=== PATIENT | female | born 1960 | race Caucasian/White ===

== ENCOUNTER 2021-03-11 09:52 | Outpatient (CLI) | payer BC, SELFPAY ==
--- NOTE | ~2021-03-11 | CT_ITS ---
EXAMINATION: CT diagnostic chest wo con DATE: 03/11/2021 10:23 INDICATION: Abnormal findings on diagnostic imaging of other specified body, lung nodules, history of cervical cancer TECHNIQUE: Computed tomography (CT) of the chest was performed without intravenous contrast. The dose -length product (DLP) was 366.91 mGy-cm. 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 COMPARISON: None FINDINGS: There is a 4 mm nodule in the posterior aspect of the right upper lobe on image 30. There i s a 2 mm nodule in the right lung apex on image 21. Mild emphysema is noted. The lungs are free of fo loly airspace opacities. There is no pleural effusion or pneumothorax. No pathologically enlarged thor acic lymph nodes are identified. The heart size is normal. Calcified coronary artery atherosclerosis is noted. There is mild thoracic spondylosis. IMPRESSION: 1. Nodule of the right lung apex measuring up to 4 mm which could reflect old granulomatous disease. Recommend comparison with any available outside imaging to assess for interval change. Reviewed, dictated and finalized at location B. [facility] IMPRESSION: 1. Nodule of the right lung apex measuring up to 4 mm which could reflect old g ranulomatous disease. Recommend comparison with any available outside imaging t o assess for interval change.
== END 2021-03-11 09:53 | disposition home or self-care (01) ==
LOC: ANHIMG 09:53
PROVIDERS: PCP Internal Medicine; Visit Provider Nurse Practitioner
DX: I25.10 Atherosclerotic heart disease of native coronary artery without angina pectoris (principal); M47.814 Spondylosis without myelopathy or radiculopathy, thoracic region; R93.89 Abnormal findings on diagnostic imaging of other specified body structures
CPT/HCPCS: 71250

== ENCOUNTER 2021-04-05 10:26 | Outpatient (CLI) | payer BC, SELFPAY ==
--- NOTE | 2021-04-06 09:05 | P.PCNPFT_ITS ---
PFT Procedure Performed PFT Procedure Performed Spirometry with Pre/Post Bronchodilator Plethysmography (Lung Vol) Diffusing Cap (DLCO) Flow Vol Loop PFT Interpretation Lung volumes were measured with the body plethysmography method. The elevated RV and FRC could be due to air trapping. Spirometry showed diminished expir atory flow rates and a diminished FEV1 to FVC ratio 67%, indicative of obstructive airway disease. Following administration of a bronchodilator, there was no significant increase in expiratory flow rates. Lung diffusion capacity is moderately reduced at 58% predicted. The flow volume loop is consistent with obstructive airway disease. Impression: Moderate obstructive airway disease with no response to bronchodilators on this testing. Moderately reduced lung diffusion capacity.
--- NOTE | 2021-04-06 09:12 | WPDSIXMINUTE ---
Six Minute Walk Procedure Procedure Performed Pulmonary Stress Test (6 min walk) Six Minute Walk This 6 minute walk test was carried out with the patient breathing ambient air. The pre walk oxyhemoglobin saturation was 96%. The patient was able to walk over 426 m with no stops during testing. During the walk the oxyhemoglobin saturation remained over 91%. Impression: No evidence of oxyhemoglobin desaturation on this testing.
== END 2021-04-05 10:27 | disposition home or self-care (01) ==
LOC: ANHPFT 10:28
PROVIDERS: PCP Internal Medicine; Visit Provider Nurse Practitioner
DX: J44.9 Chronic obstructive pulmonary disease, unspecified (principal)
CPT/HCPCS: 94060; 94618; 94726; 94729